=== PATIENT | male | born 1975 | race Caucasian/White ===

== ENCOUNTER 2022-03-11 08:10 | Emergency (ER) | payer OTHER, MEDICAID, SELFPAY ==
[2022-03-11] VITALS (13 sets, daily range): BP systolic 118–126; BP diastolic 58–102; PULSE 66–68; RESP 16; TEMP 36.4; O2SAT 97–100
--- NOTE | ~2022-03-11 | XR_ITS ---
EXAMINATION: XR ribs LT 2V w CXR 2V INDICATION: Left rib pain TECHNIQUE: PA and lateral views of the chest and 4 views of the left ribs were obtained. COMPARISON: None. FINDINGS: The lungs are free of acute opacities. No pleural effusion or pneumothorax. The cardiomedia stinal silhouette is normal. There is mild thoracic spondylosis. There are acute posterior fractures of the left ninth, 10th, and 11th ribs. IMPRESSION: 1. Acute posterior fractures of the left ninth, 10th, and 11th ribs. 2. No acute cardiopulmonary abnormality. Reviewed, dictated and finalized at location A. ERSION DEVELOPER
--- NOTE | ~2022-03-11 | XR_ITS ---
EXAMINATION: XR lumbar spine 2-3V DATE: 03/11/2022 09:31 INDICATION: Low back pain TECHNIQUE: Anteroposterior and lateral views of the lumbar spine, and cone-down lateral view of the l umbosacral junction were obtained. COMPARISON: None. FINDINGS: There is no lumbar spine fracture. There are 2 mm of retrolisthesis of L4 on L5. There is m ild loss of intervertebral disc space height at L5-S1. There are bilateral L5 pars defects. Small deg enerative osteophytes project from the anterior endplates of multiple vertebral bodies. The vertebral body heights are maintained. IMPRESSION: 1. Mild lumbar spondylosis without acute findings. Reviewed, dictated and finalized at location A. OGEOLOGIST
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
== END 2022-03-11 11:17 | disposition home or self-care (01) ==
PROVIDERS: Emergency Provider Nurse Practitioner Family; PCP Internal Medicine
DX: S22.42XA Multiple fractures of ribs, left side, initial encounter for closed fracture (principal); S39.92XA Unspecified injury of lower back, initial encounter; V47.5XXA Car driver injured in collision with fixed or stationary object in traffic accident, initial encounter
CPT/HCPCS: 71046; 71100; 72100; 99284